=== PATIENT | female | born 1975 | race Hispanic/Latino ===

== ENCOUNTER 2019-09-10 05:43 | Day surgery (SDC) | payer MEDICAID ==
[~2019-09-10] VITALS: Ht 160 cm; Wt 90.7 kg
[~2019-09-10 05:43] MED LIST: AMLO5TAB9 PO; LORA2TAB80 PO; SODIUM CHLORIDE 0.9% 1000ML 0 ML IV ONE
[2019-09-10] MEDS ORDERED: SODIUM CHLORIDE 0.9% 1000ML 1,000 ML IV ONE (05:49)
[2019-09-10 06:16] VITALS: BP 140/92
[2019-09-10] MEDS ORDERED: PROPOFOL 10 MG/ML 20ML VIAL IV ONE (09:51)
[2019-09-10 10:08] VITALS: BP 122/62
[2019-09-10 10:12] VITALS: BP 136/74
[2019-09-10 10:18] VITALS: BP 133/76
== END 2019-09-10 10:30 | disposition home or self-care (01) ==
LOC: ENDO 05:43 → DAH 05:43 → ENDO 10:30
PROVIDERS: ATTEND Internal Medicine
DX: K62.5 Hemorrhage of anus and rectum (principal); I10 Essential (primary) hypertension; K63.5 Polyp of colon; K57.30 Diverticulosis of large intestine without perforation or abscess without bleeding; K64.0 First degree hemorrhoids; E11.9 Type 2 diabetes mellitus without complications; E78.2 Mixed hyperlipidemia; E66.9 Obesity, unspecified; Z68.35 Body mass index [BMI] 35.0-35.9, adult; Z79.899 Other long term (current) drug therapy; Z85.89 Personal history of malignant neoplasm of other organs and systems; Z80.0 Family history of malignant neoplasm of digestive organs; Z83.3 Family history of diabetes mellitus
CPT/HCPCS: 45380; 82948 ×2; 88305; A4215; A4221; A4222; A4223; A4606; A4615; A4663; J2704; J7030